=== PATIENT | male | born 1980 | race Caucasian/White ===

== ENCOUNTER 2021-07-24 18:49 | Emergency (ER) | payer OTHER ==
[~2021-07-24] VITALS: Ht 180.3 cm; Wt 104.3 kg
[2021-07-24] MEDS ORDERED: LOSARTAN POTAS100 MG PO (19:03)
[2021-07-24] MEDS ORDERED: ROSUVASTATIN CA10 MG PO (19:03)
[2021-07-24] MEDS ORDERED: HYDROCHLOROTHIA25 MG PO (19:03)
[2021-07-24] MEDS ORDERED: OMEPRAZOLE20 MG PO (19:03)
[2021-07-24] MEDS ORDERED: ISOSORBIDE MONO60 MG PO (19:03)
--- NOTE | 2021-07-25 13:41 | EKG ---
[facility] [address] [facility] [place], [place] [address] Signed Normal sinus rhythm Normal ECG No previous ECGs available Confirmed by JERRY ADAMES MD ([id number]) on 07/25/2021 1:41:25 PM Electronically Signed By: JERRY ADAMES MD 07/25/21 1341 PATIENT NAME: ERIS FERNANDES Electrocardiogram DATE OF : 80 PHYSICIAN: JERRY ADAMES MD REPORT #: [id number] REPORT IS CONFIDENTIAL AND NOT TO BE RELEASED WITHOUT AUTHORIZATION
== END 2021-07-24 22:03 | disposition home or self-care (01) ==
LOC: ED 18:49
DX: I10 Essential (primary) hypertension (principal); Z20.822 Contact with and (suspected) exposure to COVID-19; Z79.899 Other long term (current) drug therapy
CPT/HCPCS: 80053; 83735; 84443; 84484; 85025; 93005; 93010; 96374; 99283-25; C9803; J2405; J7030; U0003

== ENCOUNTER 2022-09-18 10:49 | Emergency (ER) | payer OTHER ==
[~2022-09-18] VITALS: Ht 180.3 cm; Wt 104.3 kg
[~2022-09-18 10:49] MED LIST: HYDROCHLOROTHIA25 MG PO; ISOSORBIDE MONO60 MG PO; LOSARTAN POTAS100 MG PO; OMEPRAZOLE20 MG PO; ROSUVASTATIN CA10 MG PO
[2022-09-18] MEDS ORDERED: CARVEDILOL12.5 MG PO (11:18)
--- NOTE | 2022-09-18 18:33 | EKG ---
[facility] [address] [facility] [place] [address] Signed Normal sinus rhythm Normal ECG When compared with ECG of 24-JUL-2021 19:03, No significant change was found Confirmed by JERRY ADAMES MD ([id number]) on 09/18/2022 6:32:57 PM Electronically Signed By: JERRY ADAMES MD 09/18/221832 PATIENT NAME: ERIS FERNANDES Electrocardiogram DATE OF : 80 PHYSICIAN: JERRY ADAMES MD REPORT #: [id number] REPORT IS CONFIDENTIAL AND NOT TO BE RELEASED WITHOUT AUTHORIZATION
== END 2022-09-18 15:05 | disposition home or self-care (01) ==
LOC: ED 10:49
DX: I10 Essential (primary) hypertension (principal); Z88.0 Allergy status to penicillin; Z79.899 Other long term (current) drug therapy
CPT/HCPCS: 36415; 80053; 84484; 85025; 99283-25

== ENCOUNTER 2024-12-27 21:54 | Emergency (ER) | payer OTHER ==
[~2024-12-27] VITALS: Ht 180.3 cm; Wt 107.0 kg
[~2024-12-27 21:54] MED LIST changes: +CARVEDILOL12.5 MG PO
[2024-12-27] MEDS ORDERED: ALBUTEROL/IPRATROPIUM 3 ML NEB INH ONE (23:45)
[2024-12-27] MEDS ORDERED: DEXAMETHASONE SOD PHOS 10 MG/ML VIAL IM ONE (23:45)
[2024-12-28] MEDS ORDERED: ALBUTEROL2.5 MG/3 M INH (00:49)
[2024-12-28] MEDS ORDERED: IPRAT-ALBUT 0.5-3 ML INH (00:49)
[2024-12-28] MEDS ORDERED: methylPREDNISolone 4 MG HOME.PACK PO ONE (01:00)
[2024-12-28] MEDS ORDERED: ALBUTEROL SULFATE 8 GM HOME.PACK INH ONE (01:00)
[2024-12-28] MEDS ORDERED: INHALER, ASSIST DEVICES 1 EACH SPACER MISC ONE (01:00)
[2024-12-28] MEDS ORDERED: AZITHROMYCIN 250 MG HOME.PACK PO ONE (01:00)
[2024-12-28] MEDS ORDERED: ALBUTEROL SULFATE 0.083% 3 ML HOME.PACK INH PRN (01:00)
[2024-12-28 01:18] VITALS: BP 127/88
== END 2024-12-28 01:19 | disposition home or self-care (01) ==
LOC: ED 21:54
DX: J40 Bronchitis, not specified as acute or chronic (principal); I10 Essential (primary) hypertension; Z88.0 Allergy status to penicillin; Z79.899 Other long term (current) drug therapy
CPT/HCPCS: 71045; 94640; 94664; 94667; 96372; 99285-25; J1100